=== PATIENT | female | born 1990 | race Caucasian/White ===

== ENCOUNTER 2016-10-28 13:02 | Emergency (ER) | payer OTHER ==
[~2016-10-28 13:02] MED LIST: COLA100C PO; GLYB125TA PO; IBUP800T23 PO; OXYC1TAB23 PO; PRENTAB44 PO
--- NOTE | 2016-10-28 15:51 | REP ---
Lumbar spine five views: There are no comparisons. Vertebral body heights, interspacing alignment are normal. There is no spondylolysis or spondylolisthesis. The pedicles, facets and sacroiliac articulations are unremarkable. Impression: Negative lumbar spine. Signed by Darrius Dang MD 10/28/2016 03:43 P
--- NOTE | 2016-10-28 16:12 | EDDOCDS ---
Nurse's Notes [facility] Name: Fannie Hurtado Age: 26 yrs Sex: Female : 1990 Arrival Date: 10/28/2016 Time: 13:02 Bed Triage 3 Private MD: NO PRIMARY PHYSICIAN, . Diagnosis: Lumbago with sciatica, left side Presentation: 10/28 13:06 Presenting complaint: Patient states: lower left sided back pain that radiates down srm leg. states numb and tingling. last picker her son up out of his walker 2 hours ago. Acute neurological deficits are not present. Mechanism of Injury: Lifting. Adult Sepsis Screening: The patient does not have new or worsening altered mentation. Patient's respiratory rate is less than 22. Systolic blood pressure is greater than 100. Patient has a qSOFA score of 0- Negative Sepsis Screen. Suicide/Homicide risk assessment- the patient denies having any suicidal and/or homicidal ideations and does not present with any other emotional, behavioral or mental health complaints. Status: The patient is a dependent. Transition of care: patient was not received from another setting of care. 13:06 Acuity: LUCAS Level 3 srm 13:06 Method Of Arrival: Wheelchair srm Triage Assessment: 13:08 General: Appears in no apparent distress, Behavior is appropriate for age, cooperative. srm Pain: Pain currently is 8 out of 10 on a pain scale. Pt Declines HIV testing. Musculoskeletal: Reports left sided low back pain that radiates down left leg. 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 none - PMHx: none; - PSHx: ; left knee; - Social history: Smoking status: Patient uses tobacco products, current every day smoker. No barriers to communication noted, The patient speaks fluent Faroese, Speaks appropriately for age. - Family history: Not pertinent. - : The pt / caregiver states he / she is not on anticoagulants. Home medication list is obtained from the patient. - Exposure Risk Screening:: None identified. Screenin:08 Screening information is obtained from the patient. Fall risk: No risks identified. [facility] Assistance ADL's: requires no assistance with activities of daily living. Abuse/DV Screen: The patient / caregiver reports he/she is: not in a situation that causes fear, pain or injury. Nutritional screening: No deficits noted. Advance Directives: There is no active DNR order. home support is adequate. Assessment: 16:08 General: Appears in no apparent distress, comfortable, Behavior is appropriate for age, cjh cooperative, first contact with patient to review discharge instructions, patient denies new problems or complaints, denies distress, and declines offer of additional assistance. Pain: Location: back Pain currently is 6 out of 10 on a pain scale. Respiratory: Airway is patent Respiratory effort is even, unlabored, Respiratory pattern is regular, symmetrical. Derm: Skin is pink, warm & dry. Vital Signs: 13:04 BP 147 / 81; Pulse 89; Resp 18 S; Temp 96.5(O); Pulse Ox 98% on R/A; Weight 72.57 kg gr2 (R); Height 5 ft. 5 in. (165.10 cm) (R); Pain 8/10; 13:04 Body Mass Index 26.63 (72.57 kg, 165.10 cm) gr2 Vitals: 13:04 Log In Time: October 28, 2016 at 13:04. gr2 ED Course: 13:04 Patient visited by Angel Paez. gr2 13:04 Sandhya Tobar NP is Private Physician. gr2 13:04 NO PRIMARY PHYSICIAN, . is Private Physician. gr2 13:04 Patient moved to Waiting gr2 13:06 Patient visited by Angel Paez. gr2 13:06 Patient moved to Pre RCE gr2 13:07 Triage Initiated srm 14:55 Patient moved to Triage 3 hs1 15:42 Bony Paz [facility]-C [facility]. ar2 15:42 Jake Camacho MD is Attending Physician. ar2 15:43 Patient visited by Bony Paz PA-C. ar2 16:01 Jacob Mixon is Referral Physician. ar2 16:03 [facility] Payment Agreement was scanned into [email or web address] and attached to record. gb 16:08 The patient / caregiver is instructed regarding the plan of care and ED course. [facility] 16:08 No IV's were initiated during this patient's visit. No procedures done that require [facility] assistance. Order Results: There are currently no results for this order. Outcome: 16:01 Discharge ordered by Provider. ar2 16:08 Discharge Assessment: patient administered narcotics - no. The following High Risk [facility] Discharge criteria are identified: None. Discharged to home via wheelchair. Condition: good Condition: stable. Discharge instructions given to patient, Instructed on discharge instructions, follow up and referral plans. medication usage, no driving heavy equipment, no drinking with medication. No special radiology studies were completed. Property :Personal belongings accompany Pt. 16:11 Patient left the ED. [facility] Signatures: Makayla House, RN RN [facility] Purvi Solis, [facility] Reg Bony Paz, PA-C PA-C ar2 Bia Finley RN RN 1 Aaliyah Kc RN RN [facility] Angel Paez gr2 MTDD
--- NOTE | 2016-10-28 16:12 | EDDOCDS ---
Physician Documentation [facility] Name: Fannie Hurtado Age: 26 yrs Sex: Female : 1990 Arrival Date: 10/28/2016 Time: 13:02 Bed Triage 3 Private MD: NO PRIMARY PHYSICIAN, . Disposition: 10/28/16 16:01 Discharged to Home/Self Care. Impression: Lumbago with sciatica, left side. - Condition is Stable. - Discharge Instructions: Back Pain, Adult, Sciatica. - Prescriptions for Ibuprofen 800 mg Oral Tablet - take 1 tablet by ORAL route every 8 hours As needed take with food; 30 tablet. Robaxin 500 mg Oral Tablet - take 2 tablet by ORAL route every 6 hours As needed; 40 tablet. Ultram 50 mg Oral Tablet - take 1 tablet by ORAL route every 6 hours As needed MDD: 4 tabs; 20 tablet. - Medication Reconciliation, Local Pharmacy Hours form. - Follow up: Jacob Mixon; When: Call to arrange an appointment; Reason: Recheck today's complaints. - Problem is new. - Symptoms are unchanged. Historical: - Allergies: no known allergies; - Home Meds: 1. none - PMHx: none; - PSHx: ; left knee; - Social history: Smoking status: Patient uses tobacco products, current every day smoker. No barriers to communication noted, The patient speaks fluent Syriac, Speaks appropriately for age. - Family history: Not pertinent. - : The pt / caregiver states he / she is not on anticoagulants. Home medication list is obtained from the patient. - Exposure Risk Screening:: None identified. CANADIAN BACON TIER: 10/28 13:08 gave 4 onths ago srm Vital Signs: 13:04 BP 147 / 81; Pulse 89; Resp 18 S; Temp 96.5(O); Pulse Ox 98% on R/A; Weight 72.57 kg / gr2 159.99 lbs (R); Height 5 ft. 5 in. (165.10 cm) (R); Pain 8/10; 13:04 Body Mass Index 26.63 (72.57 kg, 165.10 cm) gr2 MDM: 14:23 Spine. Lumbosacral, Complete Ordered. EDMS 16:02 Financial registration complete. gb 16:03 [facility] Payment Agreement was scanned into MEDHOST and attached to record. gb Signatures: Dispatcher [employer] EDMakayla Almaguer, RN RN srm Purvi Solis, Reg Reg gb Bony Paz PA-C PA-C arAaliyah WinstonRN RN [facility] The chart was reviewed and I authenticate all verbal orders and agree with the evaluation and treatment provided.Attachments: 16:03 [facility] Payment Agreement gb MTDD
--- NOTE | 2016-10-30 17:12 | EDDOCDS ---
Physician Documentation [facility] Name: Fannie Hurtado Age: 26 yrs Sex: Female : 1990 Arrival Date: 10/28/2016 Time: 13:02 Bed Triage 3 Private MD: NO PRIMARY PHYSICIAN, . Disposition: 10/28/16 16:01 Discharged to Home/Self Care. Impression: Lumbago with sciatica, left side. - Condition is Stable. - Discharge Instructions: Back Pain, Adult, Sciatica. - Prescriptions for Ibuprofen 800 mg Oral Tablet - take 1 tablet by ORAL route every 8 hours As needed take with food; 30 tablet. Robaxin 500 mg Oral Tablet - take 2 tablet by ORAL route every 6 hours As needed; 40 tablet. Ultram 50 mg Oral Tablet - take 1 tablet by ORAL route every 6 hours As needed MDD: 4 tabs; 20 tablet. - Medication Reconciliation, Local Pharmacy Hours form. - Follow up: Jacob Mixon; When: Call to arrange an appointment; Reason: Recheck today's complaints. - Problem is new. - Symptoms are unchanged. Historical: - Allergies: no known allergies; - Home Meds: 1. none - PMHx: none; - PSHx: ; left knee; - Social history: Smoking status: Patient uses tobacco products, current every day smoker. No barriers to communication noted, The patient speaks fluent Yakut, Speaks appropriately for age. - Family history: Not pertinent. - : The pt / caregiver states he / she is not on anticoagulants. Home medication list is obtained from the patient. - Exposure Risk Screening:: None identified. 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 5 in. (165.10 cm) (R); Pain 8/10; 13:04 Body Mass Index 26.63 (72.57 kg, 165.10 cm) gr2 MDM: 14:23 Spine. Lumbosacral, Complete Ordered. EDMS 16:02 Financial registration complete. gb 16:03 [facility] Payment Agreement was scanned into MEDHOST and attached to record. gb 10/29 12:48 T-Sheet-- Draft Copy was scanned into MEDHOST and attached to record. gb 12:48 Radiology Report was scanned into MEDHOST and attached to record. gb Signatures: Dispatcher [employer] EDMS Makayla House, RN RN [facility] Purvi Solis, Reg Reg gb Bony Paz PA-C PA-C ar2 Aaliyah Kc RN RN [facility] The chart was reviewed and I authenticate all verbal orders and agree with the evaluation and treatment provided.Attachments: 10/28 16:03 [facility] Payment Agreement gb 10/29 12:48 T-Sheet-- Draft Copy gb Chart Complete MTDD
--- NOTE | 2016-10-30 17:12 | EDDOCDS ---
Physician Documentation [facility] Name: Fannie Hurtado Age: 26 yrs Sex: Female : 1990 Arrival Date: 10/28/2016 Time: 13:02 Bed Triage 3 Private MD: NO PRIMARY PHYSICIAN, . Disposition: 10/28/16 16:01 Discharged to Home/Self Care. Impression: Lumbago with sciatica, left side. - Condition is Stable. - Discharge Instructions: Back Pain, Adult, Sciatica. - Prescriptions for Ibuprofen 800 mg Oral Tablet - take 1 tablet by ORAL route every 8 hours As needed take with food; 30 tablet. Robaxin 500 mg Oral Tablet - take 2 tablet by ORAL route every 6 hours As needed; 40 tablet. Ultram 50 mg Oral Tablet - take 1 tablet by ORAL route every 6 hours As needed MDD: 4 tabs; 20 tablet. - Medication Reconciliation, Local Pharmacy Hours form. - Follow up: Jacob Mixon; When: Call to arrange an appointment; Reason: Recheck today's complaints. - Problem is new. - Symptoms are unchanged. Historical: - Allergies: no known allergies; - Home Meds: 1. none - PMHx: none; - PSHx: ; left knee; - Social history: Smoking status: Patient uses tobacco products, current every day smoker. No barriers to communication noted, The patient speaks fluent Upper Sorbian, Speaks appropriately for age. - Family history: Not pertinent. - : The pt / caregiver states he / she is not on anticoagulants. Home medication list is obtained from the patient. - Exposure Risk Screening:: None identified. DELIMER: 10/28 13:08 gave 4 onths ago srm Vital Signs: 13:04 BP 147 / 81; Pulse 89; Resp 18 S; Temp 96.5(O); Pulse Ox 98% on R/A; Weight 72.57 kg / gr2 159.99 lbs (R); Height 5 ft. 5 in. (165.10 cm) (R); Pain 8/10; 13:04 Body Mass Index 26.63 (72.57 kg, 165.10 cm) gr2 MDM: 14:23 Spine. Lumbosacral, Complete Ordered. EDMS 16:02 Financial registration complete. gb 16:03 [facility] Payment Agreement was scanned into MEDHOST and attached to record. gb 10/29 12:48 T-Sheet-- Draft Copy was scanned into MEDHOST and attached to record. gb 12:48 Radiology Report was scanned into MEDHOST and attached to record. gb Signatures: Dispatcher Med[employer] EDMS Makayla House, RN RN [facility] Purvi Solis, Reg Reg gb Bony Paz PA-C PA-C ar2 Aaliyah Kc RN RN [facility] The chart was reviewed and I authenticate all verbal orders and agree with the evaluation and treatment provided.Attachments: 10/28 16:03 [facility] Payment Agreement gb 10/29 12:48 T-Sheet-- Draft Copy gb Chart Complete MTDD
--- NOTE | 2016-10-30 17:12 | EDDOCDS ---
Nurse's Notes [facility] Name: Fannie Hurtado Age: 26 yrs Sex: Female : 1990 Arrival Date: 10/28/2016 Time: 13:02 Bed Triage 3 Private MD: NO PRIMARY PHYSICIAN, . Diagnosis: Lumbago with sciatica, left side Presentation: 10/28 13:06 Presenting complaint: Patient states: lower left sided back pain that radiates down srm leg. states numb and tingling. strip picker her son up out of his walker 2 hours ago. Acute neurological deficits are not present. Mechanism of Injury: Lifting. Adult Sepsis Screening: The patient does not have new or worsening altered mentation. Patient's respiratory rate is less than 22. Systolic blood pressure is greater than 100. Patient has a qSOFA score of 0- Negative Sepsis Screen. Suicide/Homicide risk assessment- the patient denies having any suicidal and/or homicidal ideations and does not present with any other emotional, behavioral or mental health complaints. Status: The patient is a dependent. Transition of care: patient was not received from another setting of care. 13:06 Acuity: LUCAS Level 3 srm 13:06 Method Of Arrival: Wheelchair srm Triage Assessment: 13:08 General: Appears in no apparent distress, Behavior is appropriate for age, cooperative. srm Pain: Pain currently is 8 out of 10 on a pain scale. Pt Declines HIV testing. Musculoskeletal: Reports left sided low back pain that radiates down left leg. 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 none - PMHx: none; - PSHx: ; left knee; - Social history: Smoking status: Patient uses tobacco products, current every day smoker. No barriers to communication noted, The patient speaks fluent Citizen Of [place], Speaks appropriately for age. - Family history: Not pertinent. - : The pt / caregiver states he / she is not on anticoagulants. Home medication list is obtained from the patient. - Exposure Risk Screening:: None identified. Screenin:08 Screening information is obtained from the patient. Fall risk: No risks identified. [facility] Assistance ADL's: requires no assistance with activities of daily living. Abuse/DV Screen: The patient / caregiver reports he/she is: not in a situation that causes fear, pain or injury. Nutritional screening: No deficits noted. Advance Directives: There is no active DNR order. home support is adequate. Assessment: 16:08 General: Appears in no apparent distress, comfortable, Behavior is appropriate for age, cjh cooperative, first contact with patient to review discharge instructions, patient denies new problems or complaints, denies distress, and declines offer of additional assistance. Pain: Location: back Pain currently is 6 out of 10 on a pain scale. Respiratory: Airway is patent Respiratory effort is even, unlabored, Respiratory pattern is regular, symmetrical. Derm: Skin is pink, warm & dry. Vital Signs: 13:04 BP 147 / 81; Pulse 89; Resp 18 S; Temp 96.5(O); Pulse Ox 98% on R/A; Weight 72.57 kg gr2 (R); Height 5 ft. 5 in. (165.10 cm) (R); Pain 8/10; 13:04 Body Mass Index 26.63 (72.57 kg, 165.10 cm) gr2 Vitals: 13:04 Log In Time: October 28, 2016 at 13:04. gr2 ED Course: 13:04 Patient visited by Angel Paez. gr2 13:04 Sandhya Tobar NP is Private Physician. gr2 13:04 NO PRIMARY PHYSICIAN, . is Private Physician. gr2 13:04 Patient moved to Waiting gr2 13:06 Patient visited by Angel Paez. gr2 13:06 Patient moved to Pre RCE gr2 13:07 Triage Initiated srm 14:55 Patient moved to Triage 3 hs1 15:42 Bony Paz PA-C is [facility]. ar2 15:42 Jake Camacho MD is Attending Physician. ar2 15:43 Patient visited by Bony Paz PA-C. ar2 16:01 Jacob Mixon is Referral Physician. ar2 16:03 [facility] Payment Agreement was scanned into [employer] and attached to record. gb 16:08 The patient / caregiver is instructed regarding the plan of care and ED course. cj 16:08 No IV's were initiated during this patient's visit. No procedures done that require [facility] assistance. 16:14 Spine. Lumbosacral, Complete Returned. EDMS 10/29 12:48 T-Sheet-- Draft Copy was scanned into [employer] and attached to record. gb 12:48 Radiology Report was scanned into [employer] and attached to record. gb Order Results: Radiology Order: Spine. Lumbosacral, Complete Test: Spine. Lumbosacral, Complete REASON FOR EXAMINATION: Trauma; Lumbar spine five views:; ; There are no comparisons.; ; Vertebral body heights, interspacing alignment are normal. There is no; spondylolysis or spondylolisthesis.; ; The pedicles, facets and sacroiliac articulations are unremarkable.; ; Impression:; ; Negative lumbar spine.; ; ; Signed by; Darrius Dang MD 10/28/2016 03:43 P; Outcome: 10/28 16:01 Discharge ordered by Provider. ar2 16:08 Discharge Assessment: patient administered narcotics - no. The following High Risk [facility] Discharge criteria are identified: None. Discharged to home via wheelchair. Condition: good Condition: stable. Discharge instructions given to patient, Instructed on discharge instructions, follow up and referral plans. medication usage, no driving heavy equipment, no drinking with medication. No special radiology studies were completed. Property :Personal belongings accompany Pt. 16:11 Patient left the ED. [facility] Signatures: Dispatcher [employer] EDMS Makayla House, RN RN Pur[facility] Ojeda, Reg Reg Bony Burleson PA-C PA-C ar2 Bia Finley RN RN hs1 Aaliyah Kc RN RN [facility] Angel Paez gr2 Chart Complete MTDD
== END 2016-10-28 16:11 | disposition home or self-care (01) ==
LOC: M ED 13:02
DX: M54.32 Sciatica, left side (principal); F17.210 Nicotine dependence, cigarettes, uncomplicated